=== PATIENT | male | born 1955 | race Caucasian/White ===

== ENCOUNTER → 2018-06-29 | Outpatient (CLI) | payer OTHER ==
[~2018-06-29] VITALS: Ht 180.3 cm; Wt 90.9 kg
[~2018-06-29] MED LIST: CIPRO 500MG TA500 MG PO; FLOMAX 0.40.4 MG/CAP PO; PERCOCET 325 MG1 TA4 PO
[2018-06-29 10:00] VITALS: BP 118/82
== END ==
LOC: AMSURD 09:48
DX: Z13.6 Encounter for screening for cardiovascular disorders (principal); Q23.1 Congenital insufficiency of aortic valve

== ENCOUNTER → 2018-07-20 | Day surgery (SDC) | payer OTHER ==
[2018-06-29 10:00] VITALS: BP 118/82
== END ==
LOC: MSO 08:27 → AMSURD 16:58
DX: R19.5 Other fecal abnormalities (principal); D12.4 Benign neoplasm of descending colon; D12.5 Benign neoplasm of sigmoid colon; Z87.891 Personal history of nicotine dependence; R06.02 Shortness of breath; R01.1 Cardiac murmur, unspecified; Z85.118 Personal history of other malignant neoplasm of bronchus and lung
CPT/HCPCS: 00811; J2704; J7120

== ENCOUNTER → 2019-09-15 | Outpatient (CLI) | payer MEDICARE, OTHER ==
[2018-06-29 10:00] VITALS: BP 118/82
== END ==
LOC: LAB 12:28
DX: M89.311 Hypertrophy of bone, right shoulder (principal)

== ENCOUNTER 2019-10-19 09:00 | Outpatient (RCR) | payer MEDICARE, OTHER ==
[2018-06-29 10:00] VITALS: BP 118/82
== END 2019-12-21 | disposition still patient (30) ==
LOC: PT
DX: M25.511 Pain in right shoulder (principal)

== ENCOUNTER → 2020-09-01 | Outpatient (CLI) | payer MEDICARE, OTHER ==
[2018-06-29 10:00] VITALS: BP 118/82
== END ==
LOC: RAD 15:12
DX: M79.671 Pain in right foot (principal)

== ENCOUNTER → 2020-09-15 | Outpatient (CLI) | payer MEDICARE, OTHER ==
[2018-06-29 10:00] VITALS: BP 118/82
[2020-09-15 09:36] LABS: EOS # 0.1 (0.04-0.40); EOS % 2.8 % (0.0-4.0); HEMATOCRIT 46.4 % (42.0-52.0); MEAN CELL VOLUME 93 fl (78-100); MEAN CORPUSCULAR HEMOGLOBIN 30 pg (27-31); MEAN CORPUSCULAR HGB CONC 32 g/dL (33-37); MEAN PLATELET VOLUME 10.2 fl (7.4-10.4); MONO # 0.5 (0.20-0.80); PLATELET COUNT 154 K/mm3 (130-400); RED BLOOD COUNT 4.98 M/mm3 (4.20-5.60); RED CELL DISTRIBUTION WIDTH 12.7 % (11.5-14.5); WHITE BLOOD COUNT 4.6 K/mm3 (4.8-10.8)
[2020-09-15 10:12] LABS: POTASSIUM 4.4 mmol/L (3.5-5.1)
[2020-09-15 10:13] LABS: ALBUMIN 3.9 g/dL (3.4-4.8)
[2020-09-15 10:14] LABS: CALCIUM 8.7 mg/dL (8.3-10.5)
[2020-09-15 10:15] LABS: TOTAL PROTEIN 6.2 g/dL (6.2-8.1)
[2020-09-15 10:17] LABS: TOTAL BILIRUBIN 0.6 mg/dL (0.2-1.2)
== END ==
LOC: LAB 09:00
PROVIDERS: Family Medicine
DX: Z12.5 Encounter for screening for malignant neoplasm of prostate (principal); Z13.220 Encounter for screening for lipoid disorders; Z90.2 Acquired absence of lung [part of]; Z85.118 Personal history of other malignant neoplasm of bronchus and lung

== ENCOUNTER → 2024-07-10 | Outpatient (CLI) | payer MEDICARE | LOC: VAS 06:58 → RAD 06:58 | DX: Q23.1 Congenital insufficiency of aortic valve (principal) ==

== ENCOUNTER → 2024-09-08 | Outpatient (CLI) | payer MEDICARE | LOC: LAB 13:51 | DX: E78.49 Other hyperlipidemia (principal) ==

== ENCOUNTER → 2024-11-17 | Outpatient (CLI) | payer MEDICARE | LOC: RAD 08:55 | DX: M25.562 Pain in left knee (principal) ==